=== PATIENT | male | born 1990 | race Caucasian/White ===

== ENCOUNTER 2017-07-24 03:03 | Emergency (ER) | payer SELFPAY ==
[2017-07-24] MEDS ORDERED: Vibramycin 100 MG PO ONE (03:26)
[2017-07-24] MEDS ORDERED: NORCO 5/325 MG PO ONE (03:26)
[2017-07-24] MEDS ORDERED: Vibramycin 100 MG ONE (03:29)
[2017-07-24] MEDS ORDERED: NORCO 5/325 MG ONE (03:29)
--- NOTE | 2017-07-24 03:32 | ERPHSYRPT ---
- History of Present Illness Time Seen by Provider: 07/24/17 03:20 Source: patient Exam Limitations: no limitations Patient Subjective Stated Complaint: Pt C/O right lower dental pain. Pt sts been going on for awhile but worsening tonight. Pt reports he must keep ice on it in order to keep the pain under control. Triage Nursing Assessment: Pt alert, oriented, answers all questions appropriately. Skin pink, warm, dry. Resps non-labored. Pt with poor oral hygiene noted, halitosis noted. Multiple missing teeth noted. NO obvious facial swelling noted. Physician History: 27 y/o male comes to the ER with complaints of right sided tooth pain that started this evening. Pt describes the pain as sharp, constant, 8/10 and not relieved by motrin. Pt denies any fever or chills. Timing/Duration: gradual onset Severity: severe ENT Location: dental Prearrival Treatment: over the counter meds Modifying Factors: Improves With: nothing Allergies/Adverse Reactions: methylphenidate [From Ritalin] Allergy (Verified 07/24/17 03:19) Penicillins Allergy (Verified 07/24/17 03:19) Hx Tetanus, Diphtheria Vaccination/Date Given: No Hx Influenza Vaccination/Date Given: No Hx Pneumococcal Vaccination/Date Given: No Immunizations Up to Date: No - Review of Systems Constitutional: No Fever, No Chills Eyes: No Symptoms Ears, Nose, & Throat: Mouth Pain Respiratory: No Cough, No Dyspnea Cardiac: No Chest Pain, No Edema, No Syncope Abdominal/Gastrointestinal: No Abdominal Pain, No Nausea, No Vomiting, No Diarrhea Genitourinary Symptoms: No Dysuria Musculoskeletal: No Back Pain, No Neck Pain Skin: No Rash Neurological: No Dizziness, No Focal Weakness, No Sensory Changes Psychological: No Symptoms Endocrine: No Symptoms All Other Systems: Reviewed and Negative - Past Medical History Pertinent Past Medical History: No - Past Surgical History Past Surgical History: No - Social History Smoking Status: Current every day smoker How long have you smoked: 8 Exposure to second hand smoke: No Drug Use: none Patient Lives Alone: No - Nursing Vital Signs Nursing Vital Signs: Initial Vital Signs Pulse Rate 104 H 07/24/17 03:13 Respiratory Rate 16 07/24/17 03:13 Blood Pressure 154/104 07/24/17 03:13 O2 Sat by Pulse Oximetry 99 07/24/17 03:13 Pain Scale Pain Intensity 10 - Physical Exam General Appearance: mild distress, alert Eye Exam: bilateral eye: PERRL, EOMI Nasal Exam: normal inspection Throat Exam: pharynx normal, moist mucus membranes, No tonsillar exudate Neck Exam: supple Cardiovascular/Respiratory Exam: normal breath sounds, regular rate/rhythm Abdominal Exam: non-tender, soft Neurologic Exam: alert, oriented x 3, sensation nml, No motor deficits Skin Exam: normal color, warm, dry SpO2: 99 Oxygen Delivery: Room Air - Course Nursing assessment & vital signs reviewed: Yes Ordered Tests: Medication Summary Generic Name Dose Route Start Last Admin Trade Name Freq PRN Reason Stop Dose Admin Doxycycline Hyclate 100 mg 07/24/17 03:26 Vibramycin 100 Mg PO 07/24/17 03:27 STAT ONE - Progress Progress: unchanged Progress Note: 07/24/17 03:29 Pt will be dc home on doxycycline and short course of norco. Pt has agreed to F/ u with a dentist tomorrow. - Departure Time of Disposition: 03:29 Departure Disposition: Home Clinical Impression: Dental caries Condition: Stable Critical Care Time: No Referrals: DOCTOR,NO FAMILY [Primary Care Provider] - Instructions: Tooth Decay Additional Instructions: Follow up with your dentist tomorrow for any additional recommendations. Prescriptions: Doxycycline Hyclate 100 mg [Vibramycin 100 MG] 100 mg PO BID #13 tab Hydrocodone Bit/Acetaminophen [[place] 5-325 Tablet] 1 each PO QID PRN #6 tablet PRN Reason: Pain
[2017-07-24 04:01] VITALS: BP 134/91; PULSE 102; O2SAT 98
== END 2017-07-24 04:01 | disposition home or self-care (01) ==
LOC: ED 03:03
DX: K02.9 Dental caries, unspecified (principal)
CPT/HCPCS: 99283; A9270-GY

== ENCOUNTER 2021-04-22 20:23 | Emergency (ER) | payer OTHER ==
[2021-04-22 20:43] VITALS: O2SAT 100
[2021-04-22] MEDS ORDERED: Fluor-I-Strip/Ful-Flo OP ONE ×2 (20:45→20:52)
[2021-04-22] MEDS ORDERED: TETRACAINE 0.5% STERI-UNIT SOL OP ONE (20:45)
[2021-04-22] MEDS ORDERED: TETRACAINE 0.5% STERI-UNIT SOL OP STA (20:54)
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
[2021-04-22 22:03] VITALS: BP 137/79; PULSE 88
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
== END 2021-04-22 22:10 | disposition home or self-care (01) ==
LOC: ED 20:23
DX: S05.12XA Contusion of eyeball and orbital tissues, left eye, initial encounter (principal); Y04.0XXA Assault by unarmed brawl or fight, initial encounter; Y93.89 Activity, other specified; Y92.89 Other specified places as the place of occurrence of the external cause
CPT/HCPCS: 70480; 99283